=== PATIENT | female | born 1995 | race Caucasian/White ===

== ENCOUNTER 2019-04-16 15:00 | Emergency (ER) | payer OTHER ==
[~2019-04-16] VITALS: Ht 162.6 cm; Wt 97.2 kg
[2019-04-16] MEDS ORDERED: LIDOCAINE 1% Multi-Dose 20 ML VIAL. ONE (15:10)
[2019-04-16] MEDS ORDERED: DIPHTH,PERTUSS(ACELL),TET TOX 0.5 ML DISP.SYRIN. VAX IM ONE ×2 (15:13→15:30)
--- NOTE | 2019-04-16 15:15 | PHYS DOC ---
Past History Past Medical History: No Pertinent History Adult General Chief Complaint Chief Complaint: LACERATION/AVULSION HPI HPI Patient is a 24-year-old female, who states she was cooking dinner when knife slipped, causing her to stab herself in her left thumb. She has a 2 cm laceration along the ulnar aspect of the left thumb, medially. She has full range of motion in the digit, denies any other injuries. She is uncertain of her last tetanus. Palpation of the affected area worsens her pain. There are no alleviating factors to her symptoms. Review of Systems Review of Systems Integument: Denies rash or skin lesions [] Neurologic: Denies headache, focal weakness or sensory changes [] Allergies Allergies Allergies Coded Allergies Type Severity Reaction Last Updated Verified amoxicillin Allergy Unknown 04/16/19 Yes Physical Exam Physical Exam PHYSICAL EXAM: HEENT: Atruamatic NECK: Supple, normal ROM, non-tender. CARDIAC: Regular Rate and Rhythm LUNGS: Clear Bilaterally EXTREMITIES: There is a 2 cm laceration along the ulnar aspect of the left thumb. Range of motion in the digit is normal, there is full flexion and extension, abduction, and adduction. Opposition is present and normal in all digits. Distal capillary refill is normal. The remainder the digits are atraumatic. EKG EKG [] Radiology/Procedures Radiology/Procedures [] Course & Med Decision Making Course & Med Decision Making LACERATION REPAIR PROCEDURE NOTE: The 2 centimeter laceration was irrigated copiously with normal saline, anesthetized with 1% lidocaine w/o epinephrine, prepped with Betadine, and draped with sterile drapes. Sterile technique was used. The wound was closed with # 3 4-0 nylon sutures. Good epithelial approximation was obtained. The patient tolerated the procedure well. Discussed wound care with the patient, suture removal instructions and need for follow-up. Discussed the incidentally noted elevated blood pressure, the need for further outpatient follow-up of this, and return precautions. Dragon Disclaimer Dragon Disclaimer This electronic medical record was generated, in whole or in part, using a voice recognition dictation system. Departure Departure: Impression: Primary Impression: Hand laceration Disposition: HOME, SELF-CARE Condition: STABLE Patient Instructions: Laceration Care, Adult Additional Instructions: Keep wound clean and dry. Apply topical antibiotic ointment to the affected area with each dressing change. Sutures should be removed in the next 7 days. Please contact your primary care physician to arrange for suture removal. WHITNEY MUELLER MD Apr 16, 2019 15:15
[2019-04-16 15:17] VITALS: BP 165/94
[2019-04-16] MEDS ORDERED: BACITRACIN ZINC TOPICAL OINT PACKET. TP ONE (15:30)
== END 2019-04-16 15:27 | disposition home or self-care (01) ==
LOC: ER 15:00
DX: S61.012A Laceration without foreign body of left thumb without damage to nail, initial encounter (principal); Z88.0 Allergy status to penicillin; W26.0XXA Contact with knife, initial encounter; Y93.G3 Activity, cooking and baking; Y92.89 Other specified places as the place of occurrence of the external cause; Y99.8 Other external cause status
CPT/HCPCS: 12001; 90471; 90715; 99283